=== PATIENT | male | born 1960 | race Caucasian/White ===

== ENCOUNTER 2017-03-04 06:11 | Day surgery (SDC) | payer BC ==
[~2017-03-04] VITALS: Ht 175.3 cm; Wt 119.0 kg
[~2017-03-04 06:11] MED LIST: DIVA250T4 PO; MELO15TA6 PO; OMEP-110 PO; TELM80TA PO
[2017-03-04] MEDS ORDERED: BUPIVACAINE/PF 0.5% ONE ×3 (06:23→07:57)
[2017-03-04] MEDS ORDERED: EPINEPHRINE 1 MG/ML, 1ML ONE ×2 (06:23→08:03)
[2017-03-04] MEDS ORDERED: FENTANYL PF 250 MCG/5ML ONE (06:54)
[2017-03-04] MEDS ORDERED: ONDANSETRON 2MG/ML, 2ML ONE (06:54)
[2017-03-04] MEDS ORDERED: NEOSTIGMINE 1 MG/ML, 10ML ONE (06:54)
[2017-03-04] MEDS ORDERED: DEXAMETHASONE 4 MG/ML, 1ML ONE (06:54)
[2017-03-04] MEDS ORDERED: SUCCINYLCHOLINE 20 MG/ML, 10ML ONE (06:54)
[2017-03-04] MEDS ORDERED: MIDAZOLAM 1 MG/ML, 2ML ONE (06:54)
[2017-03-04] MEDS ORDERED: PROPOFOL 10 MG/ML, 20ML ONE (06:54)
[2017-03-04] MEDS ORDERED: CEFAZOLIN 1,000 MG ONE (06:54)
[2017-03-04] MEDS ORDERED: ROCURONIUM 10 MG/ML ONE (06:54)
[2017-03-04] MEDS ORDERED: GLYCOPYRROLATE 0.2MG/1ML, 5ML ONE (06:54)
[2017-03-04] MEDS ORDERED: LACTATED RINGERS 1,000 ML IV SCH (07:15)
[2017-03-04] MEDS ORDERED: KETOROLAC 30 MG/1 ML ONE (07:49)
[2017-03-04] MEDS ORDERED: PHENYLEPHRINE 10 MG/ML ONE (07:53)
[2017-03-04] MEDS ORDERED: LORazepam 2 MG/ML, 1ML IVPush PRN (08:00)
[2017-03-04] MEDS ORDERED: HYDROmorphone 1 MG/ML, 1ML IV PRN (08:00)
[2017-03-04] MEDS ORDERED: ACETAMINOPHEN 325 MG TABLET PO PRN (08:00)
[2017-03-04] MEDS ORDERED: FENTANYL PF 100 MCG/2ML IV PRN (08:00)
[2017-03-04] MEDS ORDERED: METOCLOPRAMIDE 5 MG/ML, 2ML IV PRN (08:00)
[2017-03-04] MEDS ORDERED: LABETALOL 5MG/ML, 20ML IV PRN (08:00)
[2017-03-04] MEDS ORDERED: ONDANSETRON 2MG/ML, 2ML IVPush PRN (08:00)
[2017-03-04] MEDS ORDERED: PROMETHAZINE 25 MG/ML, 1ML IV PRN (08:00)
[2017-03-04] MEDS ORDERED: MEPERIDINE/PF 25MG/0.5ML IVPush PRN (08:00)
[2017-03-04] MEDS ORDERED: DIAZEPAM 5 MG/ML, 2ML IVPush PRN (08:00)
[2017-03-04] MEDS ORDERED: ALBUTEROL/IPRATROPIUM 2.5MG/0.5MG, 3 ML NPPB PRN (08:00)
[2017-03-04] MEDS ORDERED: hydrALAzine 20 MG/ML, 1ML IV PRN (08:00)
[2017-03-04] MEDS ORDERED: OXYcodone 5 MG/5 ML ORAL.SOL UDC PO PRN (08:00)
[2017-03-04] MEDS ORDERED: MIDAZOLAM 1 MG/ML, 2ML IV PRN (08:00)
[2017-03-04] MEDS ORDERED: ACETAMINOPHEN 325 MG TABLET ONE (09:09)
[2017-03-04] MEDS ORDERED: OXYcodone 5 MG/5 ML ORAL.SOL UDC ONE (09:09)
[2017-03-04] MEDS ORDERED: ACETAMINOPHEN 650 MG/20.3 ML UDC ONE (09:09)
== END 2017-03-04 16:15 ==
LOC: OUT 06:11
PROVIDERS: ATTEND Surgery
DX: K43.0 Incisional hernia with obstruction, without gangrene (principal); I10 Essential (primary) hypertension; E78.5 Hyperlipidemia, unspecified; K21.9 Gastro-esophageal reflux disease without esophagitis; Z68.41 Body mass index [BMI] 40.0-44.9, adult; E66.9 Obesity, unspecified; Z87.39 Personal history of other diseases of the musculoskeletal system and connective tissue; Z72.0 Tobacco use
CPT/HCPCS: 49566; 49568; C1729; C1781; J0171; J0330; J0690; J1100; J1885; J2250; J2370; J2405; J2704; J3010; J3490; J7120; J2710